=== PATIENT | female | born 1965 | race Caucasian/White ===

== ENCOUNTER → 2016-11-12 | Outpatient (CLI) | payer OTHER ==
[~2016-11-12] MED LIST: E-Z-GAS II EFFERVESCENT PACKET (SODIUM BICARB./CITRIC ACID/SIMETHICONE) As Ordered ONE; E-Z-HD 98% w/w 340GM SUSP BTL As Ordered ONE; E-Z-PAQUE 96% w/w SUSP 176GM BTL As Ordered ONE
--- NOTE | 2016-11-12 15:16 | REP ---
Esophagram The procedure was performed under the direct supervision of Dr. Perkins. The images were reviewed with Dr. Perkins. A single view PA chest x-ray is submitted as a doughnut icer machine film. The superior mediastinal structures are midline. The heart size is within normal limits. The lungs are clear. Liquid barium and gas producing granules were given in the erect position as well as liquid barium in the prone oblique positions in order to perform a double contrast esophagram examination. The oral and pharyngeal stages of deglutition are unremarkable. There are esophageal transport there are mild tertiary waves demonstrated. Note is made of degenerative changes of the cervical spine. There is no esophagitis, stricture, mucosal ring or hiatal hernia. Gastroesophageal reflux is not demonstrated on this examination. Impression: Mild tertiary wave, otherwise unremarkable esophagram examination. 58 seconds of fluoro time was utilized for this procedure. Reviewed by STEVEN Weinstein 11/12/2016 02:15 PSigned by Alex Perkins MD 11/12/2016 03:08 P
== END ==
LOC: M RAD 08:59
PROVIDERS: ATTEND Internal Medicine Gastroenterology
DX: K21.0 Gastro-esophageal reflux disease with esophagitis (principal); K44.9 Diaphragmatic hernia without obstruction or gangrene; K29.00 Acute gastritis without bleeding; K76.0 Fatty (change of) liver, not elsewhere classified; K31.84 Gastroparesis

== ENCOUNTER → 2017-01-06 | Outpatient (CLI) | payer OTHER ==
[~2017-01-06] MED LIST changes: -E-Z-GAS II EFFERVESCENT PACKET (SODIUM BICARB./CITRIC ACID/SIMETHICONE) As Ordered ONE; -E-Z-HD 98% w/w 340GM SUSP BTL As Ordered ONE; -E-Z-PAQUE 96% w/w SUSP 176GM BTL As Ordered ONE; +GASTROGRAFIN SOLUTION 30ML (Q9963) As Ordered ONE; +ISOVUE-370 76% 100ML VIAL (Q9967) As Ordered ONE
--- NOTE | 2017-01-07 06:16 | REP ---
History of breast cancer with intermittent abdominal pain. Comparison: 11/21/2008, 11/12/2011. Technique: Axial contrast enhanced images from the lung bases to the pubic symphysis using oral and 100 ml Isovue 370 intravenous contrast material with precontrast and delayed images of the abdomen as well as coronal and sagittal re-formations. Findings: Lung bases are relatively clear. Visualized heart and pericardium normal. Fatty infiltration to the liver noted without focal hepatic lesion. Spleen, pancreas, and bilateral kidneys are relatively normal / stable. Incidental note is made of a subcentimeter right renal cyst. Bilateral mild adrenal hyperplastic changes as well as 2 cm enhancing right adrenal lesion are again identified and likely represent adenoma and benign changes. The enteric system is without obstruction or acute inflammatory process. Sigmoid diverticula noted without acute diverticulitis. Pelvis demonstrates collapsed bladder and IUD in age-appropriate uterus. No pelvic fluid or ascites. No adenopathy. No mass lesion. Abdominal aorta without aneurysm or dissection. Musculoskeletal structures demonstrate age-related changes. Impression: 1. Fatty infiltration to the liver without focal hepatic lesion identified. 2. A 2 cm enhancing right adrenal lesion similar to prior examination likely representing benign adenoma along with mild bilateral adrenal hyperplasia. 3. No obvious acute intra-abdominal or pelvic pathology appreciated. Signed by Abdifatah Hui MD 01/07/2017 06:07 A
--- NOTE | 2017-01-07 06:20 | REP ---
Clinical: History of breast cancer with intermittent chest pain. Comparison: 03/23/2014. Technique: Axial contrast enhanced images from the thoracic inlet to the upper abdomen using 100 ml Isovue 370 intravenous contrast material with coronal and sagittal re-formations. Findings: The bilateral lung proctor are well-aerated, symmetric, and essentially clear. No consolidation, obvious nodule or mass lesion is appreciated. No pleural effusion/reaction or pneumothorax. No significant axillary, hilar, or mediastinal adenopathy is appreciated. Mediastinum including thoracic aorta, heart and pericardium appear relatively normal. Mild atherosclerotic changes are noted. Musculoskeletal structures demonstrate degenerative changes primarily involving the thoracic spine without focal osseous abnormality. Limited upper abdomen demonstrates hepatic steatosis and evidence for prior cholecystectomy. Enhancing right adrenal lesion remains stable and likely represents atypical adenoma. Impression: No acute mediastinal or pleuroparenchymal process appreciated. Stable right adrenal lesion likely representing benign adenoma. Fatty infiltration to the liver. Signed by Abdifatah Hui MD 01/07/2017 06:11 A
== END ==
LOC: M RAD 13:00
PROVIDERS: ATTEND Internal Medicine Hematology & Oncology
DX: M54.5 Low back pain (principal); M25.561 Pain in right knee; M25.562 Pain in left knee; M25.541 Pain in joints of right hand; M25.542 Pain in joints of left hand; M25.521 Pain in right elbow; M25.522 Pain in left elbow; Z85.3 Personal history of malignant neoplasm of breast; R06.00 Dyspnea, unspecified; R07.9 Chest pain, unspecified; R10.9 Unspecified abdominal pain; K76.0 Fatty (change of) liver, not elsewhere classified

== ENCOUNTER → 2017-12-27 | Outpatient (CLI) | payer MEDICAID ==
[~2017-12-27] MED LIST changes: -GASTROGRAFIN SOLUTION 30ML (Q9963) As Ordered ONE; +ISOVUE-370 76% 100ML VIAL (Q9967) As Ordered; -ISOVUE-370 76% 100ML VIAL (Q9967) As Ordered ONE
== END ==
LOC: M RAD 14:59
DX: I73.9 Peripheral vascular disease, unspecified (principal)
CPT/HCPCS: Q9967

== ENCOUNTER → 2018-04-20 | Outpatient (CLI) | payer MEDICAID ==
[~2018-04-20] MED LIST changes: -ISOVUE-370 76% 100ML VIAL (Q9967) As Ordered; +PROHANCE 279.3MG/ML 5ML VIAL (A9576) As Ordered
== END ==
LOC: M RAD 16:20
DX: C50.919 Malignant neoplasm of unspecified site of unspecified female breast (principal); M54.5 Low back pain
CPT/HCPCS: A9576

== ENCOUNTER 2019-01-15 11:07 | Emergency (ER) | payer MEDICAID ==
[~2019-01-15] VITALS: Ht 160 cm; Wt 85.9 kg
[2019-01-15] MEDS ORDERED: ATOR40TA75 PO (11:22)
[2019-01-15] MEDS ORDERED: METF-723 (11:22)
[2019-01-15] MEDS ORDERED: ASPI81TA85 PO (11:22)
[2019-01-15] MEDS ORDERED: METO50TA7 (11:22)
[2019-01-15] MEDS ORDERED: DEXI60CA2 (11:22)
[2019-01-15] MEDS ORDERED: LETR2.5T2 (11:22)
[2019-01-15] MEDS ORDERED: CLOP75TA2 PO (11:22)
[2019-01-15] MEDS ORDERED: HYDR12.55 (11:22)
[2019-01-15] MEDS ORDERED: GABA-1171 (11:22)
--- NOTE | 2019-01-15 14:28 | REP ---
CT CERVICAL SPINE: CT cervical spine performed in the axial plane with sagittal and coronal reconstruction images. There is no compression fracture or malalignment. There is moderate spurring of C5-C7 with mild intervening disc space narrowing at C5-6 and C6-7. There is mild spurring at C4. There may be a small central disc herniation at C3-4 and C4-5. There is probably some minor diffuse disc bulging at C5-6 and C6-7. I do not see evidence of significant spinal stenosis or neural foraminal narrowing. IMPRESSION: No fracture or dislocation. Degenerative changes as above. Possible small central disc herniation C3-4 and C4-5 with very mild diffuse disc bulging C5-6 and C6-7. For more precise evaluation of the cervical discs, consider MRI. Electronically Signed by Ever Ibrahim MD 01/15/2019 06:17 P
--- NOTE | 2019-01-15 14:32 | REP ---
CT LUMBAR SPINE: CT lumbar spine performed in the axial plane. Sagittal and coronal reconstruction images are performed. There is no compression fracture or malalignment with normal lumbar lordosis. There is mild diffuse spurring. Disc spaces are relatively well preserved. There is moderate narrowing, sclerosis, and spurring at the sacroiliac joints. There is narrowing, sclerosis, and spurring at the posterior facet joints diffusely. I do not see definite evidence for spinal stenosis or neural foraminal narrowing. There is probably some mild disc bulging diffusely at the L5-S1 level. Incidental note is made of a right adrenal adenoma having a maximum diameter of approximately 3.4 cm. Patient has had a prior cholecystectomy. IMPRESSION: Diffuse degenerative changes without fracture or dislocation. There is probably some mild diffuse disc bulging at L5-S1. Electronically Signed by Ever Ibrahim MD 01/15/2019 06:17 P
[2019-01-15 15:28] LABS: CK-MB VALUE MASS < 1.0 NG/ML (<3.6); CPK CREATINE PHOSPHOKINASE 156 U/L (26-192); MB/CK RELATIVE INDEX 0.64 (< OR =4); TROPONIN I < 0.02 NG/ML (< 0.10)
[2019-01-15] MEDS ORDERED: GABA-843 PO (15:40)
[2019-01-15] MEDS ORDERED: hydroCHLOROthiazide 12.5 MG CAPSULE PO ONE (16:00)
[2019-01-15 16:27] VITALS: BP 174/80
--- NOTE | 2019-01-15 20:05 | ECGEPIP ---
Stationary ECG Study [facility] - ED Test Date: 2019-01-15 Pat Name: RAMÍREZ COBB Department: Room: - Gender: F [employer] Technician: rocael : 1965 Requested By: EMERSON Cortes PA-C Order Number: [id number] Reading MD: Brigido Weinberg Measurements Intervals [place] Rate: 64 P: -4 FL: 146 QRS: 8 QRSD: 79 T: -33 QT: 443 QTc: 460 Interpretive Statements SINUS RHYTHM POSSIBLE LEFT ATRIAL ENLARGEMENT MODERATE T-WAVE ABNORMALITY, CONSIDER INFERIOR ISCHEMIA NO PRIORS FOR COMPARISON Electronically Signed On 01-15-2019 20:05:23 EDT by Brigido Weinberg
--- NOTE | 2019-01-16 11:15 | ED PDOC ---
Post-Departure Follow-Up dr mccain faxed formal report of ct c spine for fu Gavino Barragan MD Jan 16, 2019 11:15
== END 2019-01-15 16:43 | disposition home or self-care (01) ==
LOC: M ED 11:07
DX: M47.22 Other spondylosis with radiculopathy, cervical region (principal); M47.26 Other spondylosis with radiculopathy, lumbar region; G44.209 Tension-type headache, unspecified, not intractable; I10 Essential (primary) hypertension; I25.2 Old myocardial infarction; M51.27 Other intervertebral disc displacement, lumbosacral region; E11.9 Type 2 diabetes mellitus without complications; Z85.3 Personal history of malignant neoplasm of breast; Z92.3 Personal history of irradiation; M54.30 Sciatica, unspecified side; M51.26 Other intervertebral disc displacement, lumbar region; Z95.5 Presence of coronary angioplasty implant and graft; Z72.0 Tobacco use; Z79.82 Long term (current) use of aspirin; Z79.84 Long term (current) use of oral hypoglycemic drugs; Z79.899 Other long term (current) drug therapy; Z88.2 Allergy status to sulfonamides; Z88.8 Allergy status to other drugs, medicaments and biological substances

== ENCOUNTER → 2019-09-01 | Outpatient (CLI) | payer MEDICAID ==
[~2019-09-01] MED LIST changes: +ASPI81TA85 PO; +ATOR40TA75 PO; +CLOP75TA2 PO; +DEXI60CA2; +GABA-1171; +GABA-843 PO; +HYDR12.55; +LETR2.5T2; +METF-723; +METO50TA7; -PROHANCE 279.3MG/ML 5ML VIAL (A9576) As Ordered
[2019-09-01 13:34] LABS: BLOOD UREA NITROGEN 9 MG/DL (7-18); CREATININE FOR GFR 0.88 MG/DL (0.55-1.30); GLOMERULAR FILTRATION RATE > 60.0 (>51)
== END ==
LOC: M LAB 12:28
PROVIDERS: ATTEND Otolaryngology
DX: H91.92 Unspecified hearing loss, left ear (principal); H69.93 Unspecified Eustachian tube disorder, bilateral; D49.1 Neoplasm of unspecified behavior of respiratory system

== ENCOUNTER → 2019-09-04 | Outpatient (CLI) | payer MEDICAID ==
[~2019-09-04] MED LIST changes: +PROHANCE 279.3MG/ML 15ML VIAL (A9576) As Ordered ONE
--- NOTE | 2019-09-05 08:44 | REP ---
MRI brain: 09/04/2019. Indication: Nasopharynx neoplasm. Paresthesia. Comparison: CT MRI studies dated 05/02/2015. Technique: Multiplanar short and long TR sequences of the brain and IACs were performed following IV administration of 15 ml ProHance. Findings: There are no areas of restricted diffusion. There is no elevated intracranial pressure, mass effect or hydrocephalous. A few areas of elevated T2 prolongation are scattered throughout the cerebral hemisphere white matter. More prominent elevated T2 signal is noted within the ivania and midbrain. The large intracranial flow voids are present. There is no evidence of intracranial hemorrhage. Small right greater than left mastoid effusions are present. 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 Impression: No acute intracranial process. Abnormal brainstem and white matter signal which has progressed compared to the previous study. Considerations include earlier than expected sequelae of chronic microangiopathic ischemic disease, a demyelinating process, Lyme's disease and additional less likely etiologies. 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 Electronically Signed by Edwin Ratliff DO 09/05/2019 08:35 A
== END ==
LOC: M RAD 17:27
PROVIDERS: ATTEND Otolaryngology
DX: D37.05 Neoplasm of uncertain behavior of pharynx (principal)
CPT/HCPCS: 70553; A9576

== ENCOUNTER → 2021-01-30 | Outpatient (REF) | payer MEDICAID ==
[~2021-01-30] MED LIST changes: -ASPI81TA85 PO; +ASPI81TA86 PO; +GABA-282 PO; -GABA-843 PO; -PROHANCE 279.3MG/ML 15ML VIAL (A9576) As Ordered ONE
[2021-01-30 17:24] LABS: CREATININE,RANDOM URINE 75.2 MG/DL; TOTAL PROTEIN,RANDOM URINE 14.7 MG/DL (0.0-12.0)
[2021-01-30 17:26] LABS: MAGNESIUM LEVEL 1.9 MG/DL (1.8-2.4); PHOSPHORUS LEVEL 3.6 MG/DL (2.5-4.9)
[2021-01-30 17:35] LABS: BASO # 0.1 10^3/uL (0.0-0.2); EOS # 0.2 10^3/uL (0.0-0.5); EOS % 2.6 % (0.0-3.0); HEMOGLOBIN 12.3 g/dl (12.0-15.5); LYMPH % 42.7 % (24.0-44.0); MEAN CORPUSCULAR HEMOGLOBIN 27.3 pg (27.0-33.0); MEAN CORPUSCULAR HGB CONC 31.5 g/dl (32.0-36.5); MEAN CORPUSCULAR VOLUME 86.5 fl (80.0-96.0); MONO # 0.4 10^3/uL (0.0-0.8); MONO % 5.8 % (2.0-8.0); NEUTROPHILS # 3.3 10^3/uL (1.5-8.5); NEUTROPHILS % 47.6 % (36.0-66.0); PLATELET COUNT, AUTOMATED 299 10^3/uL (150-450); RED BLOOD COUNT 4.51 10^6/uL (4.00-5.40); TOTAL 25(OH) VITAMIN D 29.9 NG/ML (30.0-100.0)
[2021-01-30 18:17] LABS: APPEARANCE, URINE CLEAR (CLEAR); BACTERIA, URINE AUTO NEGATIVE (NEGATIVE); BILIRUBIN, URINE AUTO NEGATIVE (NEGATIVE); BLOOD, URINE BLOOD 1+ (NEGATIVE); COLOR, URINE YELLOW (YELLOW); GLUCOSE, URINE (UA) AUTO 2+ mg/dL (NEGATIVE); KETONE, URINE AUTO NEGATIVE (NEGATIVE); LEUKOCYTE ESTERASE, URINE AUTO 1+ (NEGATIVE); NITRITE, URINE AUTO NEGATIVE (NEGATIVE); PROTEIN, URINE AUTO NEGATIVE (NEGATIVE); RBC, URINE AUTO 2 /HPF (0-3); SPECIFIC GRAVITY URINE AUTO 1.015 (1.002-1.035); SQUAMOUS EPITHELIAL CELL UR AU 1 /HPF (0-6); UROBILINOGEN, URINE AUTO 0.2 mg/dL (0.0-2.0); WBC, URINE AUTO 3 /HPF (0-3)
== END ==
LOC: M SFHCRHEU 10:18
PROVIDERS: ATTEND Internal Medicine
DX: R76.8 Other specified abnormal immunological findings in serum (principal)

== ENCOUNTER → 2021-03-04 | Outpatient (REF) | payer MEDICAID ==
[2021-03-04 16:58] LABS: APPEARANCE, URINE CLEAR (CLEAR); BACTERIA, URINE AUTO NEGATIVE (NEGATIVE); BILIRUBIN, URINE AUTO NEGATIVE (NEGATIVE); BLOOD, URINE BLOOD 1+ (NEGATIVE); COLOR, URINE YELLOW (YELLOW); GLUCOSE, URINE (UA) AUTO NEGATIVE (NEGATIVE); KETONE, URINE AUTO NEGATIVE (NEGATIVE); LEUKOCYTE ESTERASE, URINE AUTO 1+ (NEGATIVE); NITRITE, URINE AUTO NEGATIVE (NEGATIVE); PROTEIN, URINE AUTO NEGATIVE (NEGATIVE); RBC, URINE AUTO 1 /HPF (0-3); SPECIFIC GRAVITY URINE AUTO 1.012 (1.002-1.035); SQUAMOUS EPITHELIAL CELL UR AU 1 /HPF (0-6); UROBILINOGEN, URINE AUTO 0.2 mg/dL (0.0-2.0); WBC, URINE AUTO 4 /HPF (0-3)
== END ==
LOC: M SFHCRHEU 14:03
PROVIDERS: ATTEND Internal Medicine
DX: R31.9 Hematuria, unspecified (principal)

== ENCOUNTER → 2021-06-27 | Outpatient (REF) | payer MEDICAID | LOC: M LAB REF 18:59 | PROVIDERS: ATTEND Physician Assistant | DX: D23.62 Other benign neoplasm of skin of left upper limb, including shoulder (principal) ==

== ENCOUNTER 2024-06-23 12:29 | Day surgery (SDC) | payer MEDICAID ==
[~2024-06-23] VITALS: Ht 160 cm; Wt 77.1 kg
[~2024-06-23 12:29] MED LIST changes: +ASPI81CH48 PO; -DEXI60CA2; +DEXI60CA2 PO; -HYDR12.55; +HYDR12.55 PO; -LETR2.5T2; +LETR2.5T2 PO; +LISI10TA22 PO; +METF-838 PO; -METO50TA7; +METO50TA7 PO; +NEXI20CA PO; +NITR0.4S14 SL; +RA M500C PO
[2024-06-23] MEDS: NS 1,000 ML IV ONE (13:25)
[2024-06-23] MEDS ORDERED: fentaNYL 100 MCG/2 ML INJECTION As Ordered ONE (15:33)
[2024-06-23] MEDS ORDERED: SIMETHICONE 40MG/0.6ML DROPS 30ML As Ordered ONE (15:36)
[2024-06-23] MEDS ORDERED: propofoL 200 MG/20 ML VIAL As Ordered ONE (15:50)
[2024-06-23] MEDS ORDERED: LIDOCAINE 2% 100MG/5ML SDV (FOR ANES.) As Ordered ONE (15:53)
[2024-06-23 15:55] VITALS: TEMP 97.6
[2024-06-23 16:15] VITALS: BP 149/70; O2SAT 97
== END 2024-06-23 16:25 | disposition home or self-care (01) ==
LOC: M OPP 12:29
PROVIDERS: ATTEND Internal Medicine Gastroenterology
DX: R93.3 Abnormal findings on diagnostic imaging of other parts of digestive tract (principal); K31.89 Other diseases of stomach and duodenum; Z87.891 Personal history of nicotine dependence; Z95.5 Presence of coronary angioplasty implant and graft; Z86.73 Personal history of transient ischemic attack (TIA), and cerebral infarction without residual deficits; E11.9 Type 2 diabetes mellitus without complications; G47.30 Sleep apnea, unspecified; Z99.89 Dependence on other enabling machines and devices; Z79.02 Long term (current) use of antithrombotics/antiplatelets; Z79.811 Long term (current) use of aromatase inhibitors; Z79.84 Long term (current) use of oral hypoglycemic drugs; Z79.82 Long term (current) use of aspirin; Z79.899 Other long term (current) drug therapy; Z88.1 Allergy status to other antibiotic agents; Z88.2 Allergy status to sulfonamides; Z88.8 Allergy status to other drugs, medicaments and biological substances
CPT/HCPCS: 43239; 88305; J3010

== ENCOUNTER → 2024-11-16 | Outpatient (CLI) | payer MEDICAID ==
[~2024-11-16] MED LIST changes: +GABA-1172 PO; -GABA-282 PO; +PROHANCE 279.3MG/ML 15ML VIAL ONE
== END ==
LOC: M PLAIMG 11:22
PROVIDERS: ATTEND Pain Medicine Interventional Pain Medicine
DX: M54.16 Radiculopathy, lumbar region (principal); M51.26 Other intervertebral disc displacement, lumbar region; M47.816 Spondylosis without myelopathy or radiculopathy, lumbar region

== ENCOUNTER 2025-08-10 18:44 | Emergency (ER) | payer MEDICAID ==
[~2025-08-10] VITALS: Ht 160 cm; Wt 84.5 kg
[~2025-08-10 18:44] MED LIST changes: +METF-1201; -METF-723; -PROHANCE 279.3MG/ML 15ML VIAL ONE
[2025-08-10] MEDS: ACETAMINOPHEN *IV* 1,000 MG in IV 1 EA IV ONE (21:35)
[2025-08-10] MEDS: traMADol 50 MG TAB PO ONE (21:36)
[2025-08-10] MEDS ORDERED: OXYC1TAB23 PO (23:16)
[2025-08-11 00:08] VITALS: BP 161/65; TEMP 97.4; O2SAT 100
[2025-08-11] MEDS: OXYCODONE/APAP 5MG/325MG(HOME DOSE PACK) PO ONE (00:09)
[2025-08-11] MEDS ORDERED: OXYC1TAB23 PO (22:04)
== END 2025-08-11 00:30 | disposition home or self-care (01) ==
LOC: M ED 18:44 → EDBD 18:44 → M ED 08-11 00:30
DX: M25.462 Effusion, left knee (principal); M85.862 Other specified disorders of bone density and structure, left lower leg; M17.12 Unilateral primary osteoarthritis, left knee; I10 Essential (primary) hypertension; E11.9 Type 2 diabetes mellitus without complications; I25.2 Old myocardial infarction; G47.33 Obstructive sleep apnea (adult) (pediatric); M50.30 Other cervical disc degeneration, unspecified cervical region; M51.360 Other intervertebral disc degeneration, lumbar region with discogenic back pain only; J44.9 Chronic obstructive pulmonary disease, unspecified; F17.200 Nicotine dependence, unspecified, uncomplicated; Z90.49 Acquired absence of other specified parts of digestive tract; Z85.3 Personal history of malignant neoplasm of breast; Z88.2 Allergy status to sulfonamides; Z88.1 Allergy status to other antibiotic agents; Z79.82 Long term (current) use of aspirin; Z79.02 Long term (current) use of antithrombotics/antiplatelets; Z79.899 Other long term (current) drug therapy
CPT/HCPCS: 73502; 73552; 73564; 94760; 96365; 99285; J0131